=== PATIENT | female | born 1960 | race Caucasian/White ===

== ENCOUNTER 2019-01-15 12:46 | Day surgery (SDC) | payer OTHER ==
[~2019-01-15] VITALS: Ht 162.6 cm; Wt 60.8 kg
[~2019-01-15 12:46] MED LIST: CALCIUM CARBON600 MG PO; CELEXA20 MG PO; CITALOPRAM HBR10 MG PO; CYCLOBENZAPRINE5 MG PO; DIINDOLYLMETHANE1 GM MISC; EVENING PRIMRO500 M1 PO; FLAXSEED OIL1000 M1 PO; GLUCOSAMINE1000 MG PO; IBUPROFEN800 MG PO; IODINE PO; IODINE30 ML MISC; MACROBID 100 M100 MG PO; MAGNESIUM CARB500 GM PO; MAGNESIUM250 M1 PO; MOTRIN IB200 MG PO; MULTIVITAMINS1 EAC7 PO; NORCO 5-325 TA1 EACH; PERCOCET 5-3251 EACH PO; PROBIOTIC1 EAC3 PO; ST. JOHN'S WOR300 M1 PO; TUMS200 MG PO; UNITHROID300 MCG PO; VITAMIN B COMP1 EACH; VITAMIN C100 MG PO; VITAMIN C500 M1 PO; VITAMIN D32000 UNI1 PO; VITAMIN E400 UNIT PO
[2019-01-15] MEDS ORDERED: MIRALAX17 GM PO (13:08)
[2019-01-15] MEDS ORDERED: VITAMIN D1000 UNIT PO (13:08)
--- NOTE | 2019-01-15 14:51 | NUR ---
01/15/19 1451 Gregoria,Sonal 1437 PT ARRIVED TO PACU ON 2L VIA NC, PT WOKE TO VERBAL STIMULI AND IS REORIENTED TO PACU. PT ENCOUARGED TO PASS GAS/AIR. PT FALLS BACK TO SLEEP EASILY. 1438 O2 TRUNED OFF. 1444 2/10 PAIN IN LOWER ABD AND PT REPORTS THIS IS BASELINE FOR HER. PT FALLS BACK ASLEEP.
--- NOTE | 2019-01-16 20:17 | OR ---
[facility] [address], [place] [address] Signed DATE OF OPERATION: 01/15/2019 SURGEON: Marlys Pan MD PREOPERATIVE DIAGNOSES: 1. 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 2. PET scan positive of right colon and left thyroid lobe. POSTOPERATIVE DIAGNOSIS: Normal colon to cecum. PROCEDURE PERFORMED: Total colonoscopy to cecum. ANESTHESIA: Intravenous sedation, fentanyl 100 mcg, Versed 5 mg. INDICATIONS FOR PROCEDURE: This 58-year-old white woman is a patient of JENNI Proctor, and was found to have an abnormality of the right upper lobe including the right peritracheal area on CT scan. Additionally, she was noted to have a nodule of the right thyroid lobe and a smaller nodule on the left lobe. She did undergo fine-needle aspiration biopsy on the right lobe by the radiologist, which was benign. A PET scan was undertaken in evaluation of the right upper lobe, which showed abnormality of the right upper lobe as well as the left lobe of the thyroid and notably the right colon itself. She has had no symptoms related to the colon, specifically no bleeding, diarrhea, or constipation problems. Colonoscopy is recommended at this time to assure there is no sign of concurrent neoplasm of the colon. As regard to the thyroid, a plan for ultrasound-guided fine-needle aspiration biopsy of the left thyroid rather than the right side that has a more obvious nodule is also under consideration. The patient understands the risks of colonoscopy including but not limited to bleeding, infection, and perforation. Notably, the patient has been seen by a thoracic surgeon in [place], [place], anticipating thoracoscopy and probable right upper lobe resection in the near future. FINDINGS: The prep was excellent. Complete colonoscopy was undertaken of the cecum. There was no sign of polyps, diverticular formation, colitis, or cancer. Electronically Signed By: MARLYS PAN MD 01/16/192016 PATIENT NAME: CAROLINE PHELPS OPERATIVE REPORT DATE OF : 62 REPORT #: [id number] PHYSICIAN: MARLYS PAN MD PCP: SOPHIE CERDA PA-C REPORT IS CONFIDENTIAL AND NOT TO BE RELEASED WITHOUT AUTHORIZATION [facility] [address] [place], [place] [address] Signed DESCRIPTION OF PROCEDURE: The patient was brought to the endoscopy suite and placed in lateral decubitus position, given intravenous sedation to the point of slurred speech and nystagmus. Digital rectal examination was normal. An Olympus video colonoscope was passed in the rectum and manipulated throughout the colon ultimately intubating the cecum itself. Careful withdrawal of scope and with the particular tension of the right colon showed absolutely no lesion to account for a PET uptake in the area. Further withdrawal of scope showed no other findings and certainly no polyps, colitis, or diverticular formation. Retroflexed view was normal as well. The scope was removed and the patient was taken to recovery room in good condition. CONCLUDING DIAGNOSIS: No lesion to account for uptake in right colon on PET scan. PLAN: She will proceed with her thoracic operation as planned. Consideration will be made for left thyroid ultrasound-guided biopsy based on positive PET scan in the future too. MD SRI Whitomre/JELANIL /[id number] cc: JENNI Proctor Copies: ~ Electronically Signed By: MARLYS PAN MD 01/16/19 2017 PATIENT NAME: CAROLINE PHELPS OPERATIVE REPORT DATE OF : 62 REPORT #: [id number] PHYSICIAN: MARLYS PAN MD PCP: SOPHIE CERDA PA-C REPORT IS CONFIDENTIAL AND NOT TO BE RELEASED WITHOUT AUTHORIZATION
== END 2019-01-15 15:17 | disposition home or self-care (01) ==
LOC: OPS 12:46 → DS 14:00 → OPS 14:00
PROVIDERS: Surgery
PROC: 0DJD8ZZ Inspection of Lower Intestinal Tract, Via Natural or Artificial Opening Endoscopic (ICD-10-PCS; principal; 2019-01-15 14:00)
DX: R94.8 Abnormal results of function studies of other organs and systems (principal); E04.1 Nontoxic single thyroid nodule; C34.91 Malignant neoplasm of unspecified part of right bronchus or lung; Z80.9 Family history of malignant neoplasm, unspecified
CPT/HCPCS: 99153; G0500; J2250; J3010

== ENCOUNTER 2019-01-25 08:41 | Day surgery (SDC) | payer OTHER ==
[~2019-01-25] VITALS: Ht 162.6 cm; Wt 60.8 kg
[~2019-01-25 08:41] MED LIST changes: +MIRALAX17 GM PO; +VITAMIN D1000 UNIT PO
--- NOTE | 2019-01-25 09:06 | NUR ---
PT IN RM [address] PAN. REVIEWED CONSENT AND VS TAKEN. AWARE OF PT HERE.
--- NOTE | 2019-01-25 11:24 | NUR ---
1120 procedure complete. has been instructed by dr caballero. ready to go home. dcd amb. states no questions.
--- NOTE | 2019-01-26 16:20 | OR ---
[facility] [address] [place], [place] [address] Signed DATE OF OPERATION: 01/25/2019 SURGEON: Marlys Pan MD PREOPERATIVE DIAGNOSES: 1. Right upper lobe lung mass, anticipating surgery soon. 2. Left and right thyroid nodules, right-sided nodule previously biopsied, benign. 3. PET positive left lobe thyroid nodule. POSTOPERATIVE DIAGNOSES: 1. Right upper lobe lung mass, anticipating surgery soon. 2. Left and right thyroid nodules, right-sided nodule previously biopsied, benign. 3. PET positive left lobe thyroid nodule. PROCEDURES PERFORMED: Ultrasound-guided fine-needle aspiration biopsy of left thyroid nodule. ANESTHESIA: Local with lidocaine 1%. INDICATION: This 58-year-old white woman is a patient of Dr. Sophie Farrell, was found to have on chest x-ray a right upper lobe lung mass, highly consistent with cancer. CT scan was found confirming the high probability of this and she was referred to a manufacturing intern, who did transbronchial biopsies, which had suspicion for malignancy. She has been organized to have definitive treatment in [place], [place]. She underwent a PET scan, which showed uptake in the right colon as well as the left thyroid lobe. An ultrasound had been performed at [facility] regarding the thyroid and a nodule in the right side was noted, which was biopsied by fine needle aspiration technique by the visiting radiologist, which was found to be benign. At that time, the PET scan had not been performed. In the meantime, the right colon was evaluated by colonoscopy showing no sign of neoplastic abnormality, and considering the remaining left lobe of the thyroid, which is "hot" related to the PET scan, consideration is made for fine-needle aspiration biopsy of that nodule. The risks of bleeding, infection, and so forth were reviewed with her. She understands and wished to proceed. Of note, she is due to undergo thoracoscopy and possible right pneumonectomy next week in [place], [place]. FINDINGS: Electronically Signed By: MARLYS PAN MD 01/26/19 1620 PATIENT NAME: CAROLINE PHELPS OPERATIVE REPORT DATE OF : 62 REPORT #: [id number] PHYSICIAN: MARLYS PAN MD PCP: SOPHIE FARRELL PA-C REPORT IS CONFIDENTIAL AND NOT TO BE RELEASED WITHOUT AUTHORIZATION [facility] [address] [place], [place] [address] Signed Ultrasound demonstrated both right and left nodules rather distinctly. They were somewhat irregular in character. The one on the right appeared to be multicystic. That on the left appeared entirely solid. Under direct visualization with ultrasound guidance, fine-needle aspiration biopsy was undertaken of the nodule with two separate syringes and needles, and adequate sampling appears likely. DESCRIPTION OF PROCEDURE: In the Day Surgery area, she was placed in the supine position on the stretcher with a pillow behind her shoulders allowing for neck extension. The neck was evaluated with ultrasound confirming a right-sided multicystic nodule and a left-sided solid nodule corresponding to the abnormality on PET scan. The anterior neck was prepared with a chlorhexidine solution and draped sterilely and 1% lidocaine was injected with ultrasound guidance as to site. Using a control syringe with a 22-gauge needle, the needle was guided to the nodule and multiple passes through the nodule taken with aspiration technique. The material was offloaded into a CytoLyt solution. A direct approach was undertaken then, also interrogating the nodule quite adequately with good tissue specimen it is believed. Reinspection with the ultrasound device showed no sign of a hematoma or other problem. A Band-Aid was applied. Marlys Pan MD /JELANIL /[id number] cc: Sophie Farrell MD Copies: ~ Electronically Signed By: MARLYS PAN MD 01/26/19 1620 PATIENT NAME: CAROLINE PHELPS OPERATIVE REPORT DATE OF : 62 REPORT #: [id number] PHYSICIAN: MARLYS PAN MD PCP: SOPHIE FARRELL PA-C REPORT IS CONFIDENTIAL AND NOT TO BE RELEASED WITHOUT AUTHORIZATION
== END 2019-01-25 18:00 | disposition home or self-care (01) ==
LOC: OPS 08:41 → DS 08:45 → OPS 09:00 → DS 09:00 → EDSTATUS 09:00 → OPS 18:00
PROC: 0G9G3ZX Drainage of Left Thyroid Gland Lobe, Percutaneous Approach, Diagnostic (ICD-10-PCS; principal; 2019-01-25)
DX: C73 Malignant neoplasm of thyroid gland (principal)
CPT/HCPCS: 10004

== ENCOUNTER 2019-11-20 08:00 | Observation (INO) | payer OTHER ==
[~2019-11-20] VITALS: Ht 162.6 cm; Wt 61.2 kg
[~2019-11-20 08:00] MED LIST changes: +CLINDAMYCIN 1%-30 GM TP; +CYCLOBENZAPRINE10 MG PO; +HYDROCODON-ACE1 EA10 PO; +IMVEXXY10 MCG VG; +K-TAB ER20 MEQ PO; +OLANZAPINE10 MG PO; +ONDANSETRON ODT8 MG PO; +TARCEVA100 MG PO; -VITAMIN D1000 UNIT PO; +VITAMIN D325 MCG PO
[2019-11-20] MEDS ORDERED: FISH OIL 1,0001 EAC2 PO (08:17)
[2019-11-20] MEDS ORDERED: FOLIC ACID0.4 MG PO (08:18)
--- NOTE | 2019-11-20 13:14 | NUR ---
11/20/19 1314 Maru Gomes 1309-PATIENT ARRIVED TO PACU ON 6L MASK RR EVEN. PATIENT AWAKE DROWSY DENIES PAIN OR NAUSEA. ST. DRESSING TO NECK CDI. PORT TO RIGHT CHEST INFUSING CDI IVF INFUSING. PATIENT CLOSES EYES.
--- NOTE | 2019-11-20 14:15 | NUR ---
New surgical admit to floor. Pt arrived alert and oriented x4. Pt's hob elevated at this time, respirations even and non labored. VS stable, cpox intact, 97% at this time on room air. Pt denies difficulty breathing, no distress noted. Dressing to anterior neck is noted to be CDI, no indication of a hematoma to this region. Pt reports she has no respiratory or chest distress at this time. Warm water provided per pt request for her reported chronic nausea. Oriented patient to room and call light. at bedside. No needs at this time. Pt reports mild tolerable pain to neck area, declines pain medication at this time.
--- NOTE | 2019-11-20 15:23 | NUR ---
Pt sitting up in bed, alert and oriented x4. Hob remains elevated, respirations even and non labored. CPOX intact, 98% on room air. Pt denies sob or airway difficulties, dressing remains CDI. Pt reporting pain has improved with last dose of tylenol. Pt tolerating Clears well. No needs. Personal supplies and call light within reach.
--- NOTE | 2019-11-20 15:27 | NUR ---
CALL LIGHT ANSWERED. PATIENT USING THE BATHROOM. PATIENT BACKS TO BED. ONE PERSON ASSISTING. ICE WATER AND HOT WATER GIVEN. CALL LIGHT WITHIN REACH. NO OTHER NEEDS AT THIS TIME
[2019-11-20] MEDS ORDERED: K-TAB10 MEQ PO (15:50)
[2019-11-20] MEDS ORDERED: POTASSIUM CHLO10 ME2 PO (15:52)
--- NOTE | 2019-11-20 16:34 | NUR ---
Patient in bed, alert and oriented x4. Pt on room air, respirations even and non labored. Dressing to neck is CDI. Vital signs stable, cpox intact-sat level of 97% at this time. Patient reports she is doing well at this time. Hob remains elevated. Call light within reach.
[2019-11-20] MEDS ORDERED: ESTRADIOL42.5 GM VAGINAL (17:16)
--- NOTE | 2019-11-20 17:34 | NUR ---
PATIENT RESTING IN BED. IN ROOM. VITAL SIGNS DONE BY RN. I&O DONE. CALL LIGHT WITHIN REACH. NO OTHER NEEDS AT THIS TIME
--- NOTE | 2019-11-20 17:45 | NUR ---
Pt doing well, eating dinner at this time. Pt is on room air, respirations even and non labored. Dressing to neck is CDI, no airway distress noted, cpox intact, 98% at this time. Pt voiding well. Pt reports pain continues to be tolerable, 2/10. No needs at this time. Call light within reach.
--- NOTE | 2019-11-20 18:04 | NUR ---
MED REC COMPLETE
--- NOTE | 2019-11-20 19:45 | NUR ---
PT REQUESTED TO WALK, ONCE IN ROOM TO ASSIST, SHE SAID NO, BECAME NAUSEATED, STATED THAT FOOD MIGHT HELP. PUDDING, AND SALTINE CRACKERS GIVEN. PREFERED TO SIT ON THE EDGE OF THE BED. STATED SINCE HER "CHEMO" MEDS, SHE GETS NAUSEATED. FAMILY MEMBER IN ROOM AT BEDSIDE.
--- NOTE | 2019-11-20 19:57 | NUR ---
PHONE CALL FROM , UPDATED ON pt CONDITION. D/C PEPCID ORDERS PER pt REQUEST DUE TO HOME MEDICATION, OKAY PER MD. NEW ORDER FOR SYNTHROID REPEATED BACK.
--- NOTE | 2019-11-20 20:03 | NUR ---
REPORT RECEIVED FROM JUAN PABLO HOLT. PATIENT SITTING UP IN BED, AT BEDSIDE. DRESSING C/D/I. IVF INFUSING WNL. PATIENT REQUESTING TO WALK, MADE PLAN WITH PT FOR AMBULATION. CALL LIGHT IN REACH.
--- NOTE | 2019-11-20 21:20 | NUR ---
PATIENT CALLED TO USE THE BATHROOM. SBA. PATIENT DID P.M. CARE. PROVIDED TOILETRIES SUPPLY. PATIENT IS BACK IN BED. V/S AND I&O TAKEN AND CHARTED. NO OTHER NEEDS AT THIS TIME.
--- NOTE | 2019-11-20 21:42 | NUR ---
SCHEDULED MEDS ADMINISTERED, ASSESSMENT COMPLETE. DRESSING TO NECK C/D/I. NO SWELLING IN NECK, PT REPORTS NO PROBELMS SWALLOWING PO MEDS. HOB ELEVATED [address] PORT WNL, FLUSHES EASILY AND BLOOD RETURN. PT REPORTS "SOME" PAIN AROUND INCISION SITE, DENIES NEED FOR ADDITIONAL PAIN MEDICATION. REPOSITIONED IN BED WITH PILLOWS. CALL LIGHT IN REACH. NO ADDITIONAL NEEDS.
--- NOTE | 2019-11-20 22:01 | NUR ---
HELPED PT TO THE BATHROOM AND BACK TO BED. PULSE OX PLUGGED BACK IN. SCD'S ON WELL. FRESH ICE WATER GIVEN. PT NEEDS NOTHING MORE AT THIS TIME.
--- NOTE | 2019-11-20 22:31 | NUR ---
CALL LIGHT ANSWERED. SBA TO THE BATHROOM AND BACK TO BED. NO OTHER NEEDS AT THIS TIME. CALL LIGHT WITHIN REACH.
--- NOTE | 2019-11-21 00:14 | NUR ---
ROUNDED ON PATIENT, HOB ELEVATED, AWAKE IN BED BUT RESTING WITH LIGHTS OFF. IVF INFUSING WNL. CALL LIGHT WITHIN REACH. PATIENT DENIES NEEDS AT THIS TIME.
--- NOTE | 2019-11-21 02:16 | NUR ---
ANSWERED CALL LIGHT, IV PUMP ALARMING. NEW FLUIDS HUNG, IVF INFUSING WNL. ASSESSMENT COMPLETE, VS AND I/O'S COMPLETE. INCISION COVERED, DRESSING C/D/I. PT REPORTS 3/10 PAIN, STATES IT IS TOLERABLE FOR HER. NO SOB OR DISCOMFORT. NO SWELLING NOTED AROUND INCISION SITE. SCD'S IN PLACE. NO OTHER NEEDS REPORTED AT THIS TIME.
--- NOTE | 2019-11-21 06:19 | NUR ---
PATIENT REPORTS NO PAIN, NAUSEA OR SOB THIS SHIFT. INCISION COVERED, DRESSING C/D/I. PT STATES SLIGHT, TOLERABLE PAIN AT INCISION SITE AND INSIDE THROAT, DENIES NEED FOR PAIN MEDICATION THIS SHIFT. PORT WNL, FLUSHES EASILY W GOOD BLOOD RETURN. PT REPORTS CHRONIC NAUSEA. CPOX, SCDS IN PLACE. VSS. A+Ox4. IVF INFUSING WNL. HOB ELEVATED. TRACH KIT AT BEDSIDE. AMBULATING SBA TO BR TO VOID. CALLS APPROPRIATELY.
--- NOTE | 2019-11-21 06:52 | NUR ---
VS AND I/O'S COMPLETE, ASSESSMENT COMPLETE. LAB IN ROOM. SCD'S IN PLACE. PATIENT IN BED, HOB ELEVATED. SCHEDULED MEDS ADMINISTERED. RATES PAIN AT 3/10, STATES IS TOLERABLE AND DENIES NEED FOR PAIN MEDICATION AT THIS TIME. ICE WATER AND HOT TEA PROVIDED.
--- NOTE | 2019-11-21 07:57 | NUR ---
Pt sitting up in bed in good spirits, alert and oriented x4. Pt reports feeling much better this morning. Hob remains elevated. Dressing to anterior neck is CDI. Pt sipping on her tea at this time. Pt denies needs at this time. Call light within reach.
--- NOTE | 2019-11-21 08:35 | NUR ---
PATEINT AWAKE IN BED, FAMILY IN ROOM. WASHCLOTH PLACED IN BEATHROOM FOR LATER USE. CALL IGHT IN REACH, NO OTHER NEEDS AT THIS TIME
--- NOTE | 2019-11-21 09:59 | NUR ---
SPOKE WITH PATIENT IN ROOM. PATIENT WAS UP DOING AM CARE ON OWN. IN ROOM ALSO. PATIENT LIVES WITH SPOUSE. WORKS SEASONALLY. DRIVES. HAS PCP LOCALLY. USES NO DME. DENIES FINANCIAL WORRY TO AFFORD MEDICATIONS, FOOD OR UTILITIES. PATIENT PLANS AND FEELS SAFE TO DISCHARGE HOME. WILL DRIVE HER HOME. HAS NO QUESTIONS OR CONCERNS. UNDERSTANDS SHE WILL HAVE F/U WITH DR PAN AND PCP AND WILL BE ABLE TO GET THERE. NO BARRIERS TO DISCHARGE HOME AT THIS TIME.
--- NOTE | 2019-11-21 10:30 | NUR ---
PATIENT AWAKE IN BED, IN ROOM. VITALS AND I&OS CHARTED. CALL LIGHT IN REACH
[2019-11-21] MEDS ORDERED: ACETAMINOPHEN500 MG PO (12:33)
[2019-11-21] MEDS ORDERED: TUMS300 MG PO (12:34)
[2019-11-21] MEDS ORDERED: LEVOTHYROXINE150 MCG PO (12:34)
[2019-11-21] MEDS ORDERED: MAPAP500 MG PO (12:35)
[2019-11-21] MEDS ORDERED: MOTRIN IB200 MG PO (12:36)
--- NOTE | 2019-11-23 08:24 | PATH ---
[facility] [address] [place], [place] [address] Signed SPECIMEN(S): A THYROID, TOTAL SPECIMEN SOURCE: A. THYROID, TOTAL CLINICAL HISTORY: Total thyroidectomy. Papillary thyroid cancer (stitch chester right thyroid lobe). 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 - Tumor focality: Unifocal. - Tumor site: Left lobe. - Tumor size: 0.8 x 0.8 x 0.6 cm. - Histologic type: Papillary carcinoma, classic (usual, conventional). - Margins: Close, but negative (tumor not on ink), see Comment. - Angioinvasion: Not identified. - Lymphatic invasion: Not identified. - Perineural invasion: Not identified. - Extrathyroidal extension: Present, microscopic strap muscle invasion only, with no clinical/macroscopic evidence of invasion. - Regional lymph nodes: - Number of lymph nodes involved: 0. - Carol levels: Level perithyroidal. - Number of lymph nodes examined: 1 (incidental). - Other findings: Bilateral adenomatoid nodules (largest = 2.3 cm in greatest dimension, right lobe with biopsy changes). - Pathologic stage classification (pTNM, AJCC 8th Edition): pT1a pN0. COMMENT: The papillary thyroid carcinoma is focally extremely close to, but not seen at, the cauterized and inked anterior surgical margin. As part of [facility] Quality Improvement Program, this case was reviewed by another member of our pathology staff. NAL:cb:C1NR MICROSCOPIC EXAMINATION: Histologic sections of all submitted blocks are examined by light microscopy. CD 34 immunohistochemical stains (with appropriately staining controls) were PATIENT NAME: CAROLINE PHELPS PATHOLOGY DATE OF : 62 REPORT #: [id number] PHYSICIAN: EDU PATHOLOGY PCP: SOPHIE CERDA PA-C REPORT IS CONFIDENTIAL AND NOT TO BE RELEASED WITHOUT AUTHORIZATION [facility] [address] [place], [place] [address] Signed performed on A1 and A2 to aid in assessing angiolymphatic invasion. No angiolymphatic invasion was identified, supporting the above diagnosis. These findings, together with the gross examination, support the pathologic diagnosis. GROSS DESCRIPTION: The specimen, labeled "SE," and designated on the requisition "total thyroid," is received in formalin and consists of a total thyroidectomy (15 gram, left lobe: 2.9 cm superior to inferior, 2.4 cm medial to lateral, and 1.8 cm anterior to posterior, right lobe: 4.0 cm superior to inferior, 2.4 cm medial to lateral, and 1.6 cm anterior to posterior, isthmus: 1.4 x 1.7 x 0.7 cm). The specimen is inked as follows: Blue = left lobe Green = right lobe Yellow = isthmus Black = posterior aspect The left thyroid lobe is red-brown and serially sectioned to reveal a white-monten[place], ill-defined mass (0.8 x 0.8 x 0.6 cm) in the superior aspect of the lobe. The remaining cut surface shows red-brown, grossly unremarkable thyroid parenchyma. The right thyroid lobe is sectioned to reveal a brown-monten[place]ro to white-[place]en[place], gelatinous to cystic nodule (2.3 x 2.1 x 1.8 cm) in the inferior to middle aspect of the right thyroid lobe. The remaining cut surface of the thyroid shows red-brown, grossly unremarkable thyroid parenchyma. Each lobe is submitted entirely and sequentially from superior to inferior as follows: Cassette Summary: (A1-A7) Left thyroid lobe entirely and sequentially from superior to inferior adjacent isthmus (A8-A17) Right thyroid lobe entirely and sequentially from superior to inferior with adjacent isthmus AC (under the direct supervision of a pathologist) The Gross Description was prepared using a voice recognition system. The report was reviewed for accuracy; however, sound-alike word errors, addition and/or deletions may occur. If there is any question about this report, please contact Client Services. PERFORMING LABORATORY: The technical component was performed by [facility] [address] (Endoscopy Technician: Brooke Dunaway MD; CLIA# [id number]). PATIENT NAME: CAROLINE PHELPS PATHOLOGY DATE OF : 62 REPORT #: [id number] PHYSICIAN: EDU RENE PCP: SOPHIE CERDA PA-C REPORT IS CONFIDENTIAL AND NOT TO BE RELEASED WITHOUT AUTHORIZATION [facility] [address], [place] [address] Signed Professional [facility], [address] [facility] [address] [place] [address] (CLIA# [id number]). Diagnostician: Abby Robledo MD Pathologist Electronically Signed 11/23/2019 Copies: ~ PATIENT NAME: CAROLINE PHELPS PATHOLOGY DATE OF : 62 REPORT #: [id number] PHYSICIAN: EDU RENE PCP: SOPHIE CERDA PA-C REPORT IS CONFIDENTIAL AND NOT TO BE RELEASED WITHOUT AUTHORIZATION
--- NOTE | 2019-11-26 09:00 | OR ---
[facility] [address], [place] [address] Signed DATE OF OPERATION: 11/20/2019 SURGEON: Marlys Pan MD PREOPERATIVE DIAGNOSES: 1. 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 2. 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 POSTOPERATIVE DIAGNOSES: 1. 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 2. 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 PROCEDURE: Total thyroidectomy. ANESTHESIA: General endotracheal; Marlys Ricardo CRNA INDICATIONS: This 59-year-old white woman is a patient of Sophie Farrell PA-C. She has been diagnosed by me with a right lower pole thyroid papillary carcinoma on January 25, 2019 by a fine-needle aspiration biopsy with ultrasound. Special note, the patient has undergone right pneumonectomy for a hilar adenocarcinoma in the same timeframe, this was performed in [place], [place]. A nodule had been seen on imaging studies in association with her neoplasm. Given the fact she required chemotherapy for 4 weeks up through May and the significant right lung neoplasm was of primary concern, the diagnosed neoplasm of the thyroid gland has been put on hold. Complicating all of this of course was a viral pandemic. She has no particular symptoms related to the thyroid mass, specifically no hoarseness, trouble breathing, or trouble with swallowing. She does have some functional limitation related to her pneumonectomy, but it is getting along quite well in that regard as well at this time. She is now admitted to undergo total thyroidectomy as there are nodules not just to the right lower pole, but at the left side. She understands as does her the risks of bleeding, infection, recurrent laryngeal nerve injury, and need for lifelong thyroid hormone replacement therapy. She understands this special risks of operation including the recurrent laryngeal nerve injury, permanent or temporary hypoparathyroidism, need for additional treatment depending on ultimate pathologic findings. She understands and she wished to proceed. Electronically Signed By: MARLYS PAN MD 11/22/19 1732 PATIENT NAME: CAROLINE PHELPS OPERATIVE REPORT DATE OF : 62 REPORT #: [id number] PHYSICIAN: MARLYS PAN MD PCP: SOPHIE FARRELL PA-C REPORT IS CONFIDENTIAL AND NOT TO BE RELEASED WITHOUT AUTHORIZATION [facility] [address], [place] [address] Signed FINDINGS: Left lobe was rather small. The right lobe also abnormal size with a larger right lower pole neoplastic problem. Total thyroidectomy was performed without problem. The left recurrent laryngeal nerve was quite easily identified and the right side generally identified. Right lower and upper parathyroid glands were identified well on the left side and a less reliable area consistent with unresected parathyroid tissue was also noted. Trachea itself was normal. She had no regional adenopathy related to the thyroid gland itself. DESCRIPTION OF PROCEDURE: The patient was brought to the operating room, given a general endotracheal anesthetic. Parson catheter was placed. A shoulder roll was placed with mild extension of the neck. She had no regional adenopathy. A right subclavian port device was noted. The neck was prepared with a chlorhexidine solution and draped sterilely. A natural skin crease was noted and was used, incising the skin from the medial border of the sternocleidomastoid muscle bilaterally. Dissection was carried through the dermis sharply and using electrocautery the platysmal layer was divided. The patient has a very thin neck and excellent tissue planes were identified. Superior and inferior flaps were developed with blunt electrocautery dissection. Gelpi retractors were placed and the midline strap muscles incised in the avascular plane, retracted laterally, first on the left side. The sternohyoid and sternothyroid muscles were freed with sharp dissection revealing underlying thyroid gland, which appeared reasonably normal. The left lobe was mobilized laterally with blunt and sharp dissection and individual ligation of small vessels of the superior pole undertaken with 4-0 silk ties. Inferiorly, similar retraction cephalad and application of ties was accomplished. The thyroid was rolled towards the midline with meticulous care, preserving the posterior elements ultimately identifying the recurrent laryngeal nerve and superior and inferior parathyroid gland remnants so far as could be told. The ligament of Haque was divided with needlepoint electrocautery with special care to avoid excessive electrocautery used in this area of the dissection. The avascular plane in the pretracheal space allowed for the isthmus to be retracted as well. Small clips had been applied as necessary. Two small vessels more amenable to clipping, then ligation. Plain gauze was packed in the left peritracheal space. Plans were then made for right thyroid lobectomy. Using similar dissection, the strap muscles were freed from the underlying thyroid gland. The bulkiness to the right lower pole was noted concordant to imaging study for thyroid neoplasm. The superior and inferior pole were mobilized with individual ligation of small vessels using 4-0 silk ties isolating them individually. The lateral attachments were freed with sharp and blunt dissection ultimately rotating the right lobe towards the midline. The posterior elements were much more easily identified on this side including normal-appearing Electronically Signed By: MARLYS PAN MD 11/22/19 1732 PATIENT NAME: CAROLINE PHELPS OPERATIVE REPORT DATE OF : 62 REPORT #: [id number] PHYSICIAN: MARLYS PAN MD PCP: SOPHIE FARRELL PA-C REPORT IS CONFIDENTIAL AND NOT TO BE RELEASED WITHOUT AUTHORIZATION [facility] [address], [place] [address] Signed parathyroid glands, which were left in situ. Again, minimal amounts of electrocautery was used to transect the ligament of Haque, ultimately freeing the thyroid entirely. Photographs were taken of the specimen. A suture marked right lower pole neoplasm. Irrigation was undertaken and with meticulous care, small clips were applied to any areas with bleeding, particularly in the paratracheal groove. The recurrent laryngeal nerves were identified and unharmed. Residual parathyroid gland particularly on the right side was assured. A small amount of Joe was applied in each peritracheal space. A drain was deemed unnecessary. The midline strap muscles were reapproximated with interrupted 2-0 Vicryl. The platysmal muscle was similarly reapproximated and the skin closed with running subcuticular 3-0 Vicryl with application of Steri-Strips to the skin and a silver sponge dressing. The patient was ultimately extubated and transferred to the recovery room in good condition having suffered no complication. ESTIMATED BLOOD LOSS: Less than 25 mL in aggregate. COUNTS: Sponge, needle, and instrument counts reported as correct x3. In the recovery room, she was able to phonate without signs of impediment, had no breathing problems and no clinical evidence of nerve injury or other problem. MD SRI Whitmore/YULIA /[id number] cc: Ap Castro MD Copies: AP CASTRO MD ~ Electronically Signed By: MARLYS PAN MD 11/22/19 1732 PATIENT NAME: CAROLINE PHELPS OPERATIVE REPORT DATE OF : 62 REPORT #: [id number] PHYSICIAN: MARLYS PAN MD PCP: SOPHIE FARRELL PA-C REPORT IS CONFIDENTIAL AND NOT TO BE RELEASED WITHOUT AUTHORIZATION
== END 2019-11-21 13:35 | disposition home or self-care (01) ==
LOC: DS 08:00 → MS 08:00 → DSVR 08:00 → EDSTATUS 09:00 → MS 09:00 → DS 13:15 → MS 13:16 → DSVR 13:55 → MS 13:55
PROVIDERS: ADMIT Surgery; ATTEND Surgery
PROC: 0GBJ0ZZ Excision of Thyroid Gland Isthmus, Open Approach (ICD-10-PCS; 2019-11-20)
PROC: 0GTK0ZZ Resection of Thyroid Gland, Open Approach (ICD-10-PCS; principal; 2019-11-20 09:00)
DX: C73 Malignant neoplasm of thyroid gland (principal); Z90.2 Acquired absence of lung [part of]; Z79.899 Other long term (current) drug therapy
CPT/HCPCS: 00320; 80053; G0378; J0330; J0690; J1100; J1720; J1885; J2250; J2405; J2704; J2765; J3010; J7121

== ENCOUNTER 2022-04-23 16:53 | Emergency (ER) | payer OTHER ==
[~2022-04-23] VITALS: Ht 162.6 cm; Wt 67.6 kg
[~2022-04-23 16:53] MED LIST changes: +ACETAMINOPHEN500 MG PO; +ESTRADIOL42.5 GM VAGINAL; +FISH OIL 1,0001 EAC2 PO; +FOLIC ACID0.4 MG PO; +IBUPROFEN600 MG PO; +K-TAB10 MEQ PO; +LEVOTHYROXINE150 MCG PO; +MAPAP500 MG PO; +OXYCODON-ACETA1 EAC2 PO; +POTASSIUM CHLO10 ME2 PO; +TUMS300 MG PO
[2022-04-23] MEDS ORDERED: DEXAMETHASONE4 MG PO (19:26)
[2022-04-23] MEDS ORDERED: ONDANSETRON ODT8 MG PO (19:26)
== END 2022-04-23 19:47 | disposition home or self-care (01) ==
LOC: ED 16:53
DX: G93.89 Other specified disorders of brain (principal); Z79.899 Other long term (current) drug therapy; W18.30XA Fall on same level, unspecified, initial encounter
CPT/HCPCS: 36415; 70450; 80053; 85025; 99284-25; J8540

== ENCOUNTER 2023-03-04 11:13 | Emergency (ER) | payer OTHER ==
[~2023-03-04] VITALS: Ht 162.6 cm; Wt 59.9 kg
--- NOTE | ~2023-03-04 | EKG ---
[facility] [address] [facility] [place], [place] [address] Draft EK completed, results pending confirmation PATIENT NAME: CAROLINE PHELPS DONALDSON Electrocardiogram DATE OF : 62 PHYSICIAN: PRELIMINARY REPORT #: [id number] REPORT IS CONFIDENTIAL AND NOT TO BE RELEASED WITHOUT AUTHORIZATION
[~2023-03-04 11:13] MED LIST changes: +DEXAMETHASONE4 MG PO; +DOXYCYCLINE HY100 MG PO; +ELIQUIS5 M1 PO
[2023-03-04] MEDS ORDERED: LEVOTHYROXINE88 MCG PO (11:42)
[2023-03-04] MEDS ORDERED: OMEPRAZOLE20 MG PO (11:42)
[2023-03-04] MEDS ORDERED: TAGRISSO80 MG PO (11:42)
[2023-03-04] MEDS ORDERED: ELIQUIS5 MG PO (11:42)
[2023-03-04] MEDS ORDERED: CITALOPRAM HBR20 MG PO (11:43)
[2023-03-04 11:51] LABS: BASOPHILS 0.2 % (0-2); EOSINOPHILS 0.1 % (0-6); HEMATOCRIT 35.1 % (35.0-50.0); HEMOGLOBIN 12.1 g/dL (12.0-18.0); LYMPHOCYTES 15.9 % (24-44); MCH 31.7 (27-36); MCHC 34.4 g/dl (30-36); MCV 92.1 fl (81-99); MONOCYTES 6.6 % (0-12); NEUTROPHILS 77.2 % (39-80); PLATELET COUNT 137 K/uL (140-440); RBC 3.81 M/ul (4.3-5.7); RDW 14.3 (10.5-15.0)
[2023-03-04 12:13] LABS: ALBUMIN 3.7 g/dL (3.4-5.0); ALBUMIN/GLOBULIN RATIO 1.03 (1.1-2.4); ANION GAP 15.1 (7-21); BUN/CREATININE RATIO 15.53 (6.0-28.6); CREATININE, SERUM 1.03 mg/dL (0.55-1.02); MAGNESIUM 2.3 mg/dL (1.8-2.4); POTASSIUM 3.1 mmol/L (3.5-5.1); PROTEIN, TOTAL 7.3 g/dL (6.4-8.2)
[2023-03-04 14:25] LABS: BILIRUBIN, URINE NEGATIVE (negative); BLOOD/HGB, URINE NEGATIVE (Negative); KETONE, URINE NEGATIVE (Negative); LEUK ESTERASE, URINE NEGATIVE (negative); NITRITE, URINE NEGATIVE (negative)
[2023-03-04] MEDS ORDERED: DEXAMETHASONE4 MG PO (16:42)
[2023-03-04 17:18] VITALS: BP 116/82
== END 2023-03-04 17:19 | disposition home or self-care (01) ==
LOC: ED 11:13
PROVIDERS: Emergency Medicine
DX: C79.31 Secondary malignant neoplasm of brain (principal); R53.1 Weakness; G93.89 Other specified disorders of brain; C34.90 Malignant neoplasm of unspecified part of unspecified bronchus or lung; Z79.01 Long term (current) use of anticoagulants; Z79.890 Hormone replacement therapy; Z79.899 Other long term (current) drug therapy
CPT/HCPCS: 36415; 70470; 71045; 72131; 80053; 81003; 83735; 84484; 85025; 93005; 93010; 96361; 99285-25; J1100; J7040; Q9967

== ENCOUNTER 2023-09-23 12:14 | Emergency (ER) | payer OTHER ==
[~2023-09-23] VITALS: Ht 162.6 cm; Wt 49.4 kg
[~2023-09-23 12:14] MED LIST changes: +CEFDINIR300 MG PO; +CITALOPRAM HBR20 MG PO; +ELIQUIS5 MG PO; +LEVOTHYROXINE88 MCG PO; +OMEPRAZOLE20 MG PO; +ONDANSETRON ODT4 MG PO; +TAGRISSO80 MG PO
[2023-09-23] MEDS ORDERED: EFFER-K 20 MEQ20 MEQ PO (12:31)
[2023-09-23 13:28] VITALS: BP 95/70
== END 2023-09-23 13:29 | disposition home or self-care (01) ==
LOC: ED 12:14
DX: M25.552 Pain in left hip (principal); M25.512 Pain in left shoulder; W18.30XA Fall on same level, unspecified, initial encounter; Z79.01 Long term (current) use of anticoagulants; Z79.890 Hormone replacement therapy; Z79.899 Other long term (current) drug therapy
CPT/HCPCS: 73030; 73502; 99283